=== PATIENT | female | born 1970 | race Caucasian/White ===

== ENCOUNTER → 2017-03-10 | Outpatient (CLI) | payer OTHER | LOC: LAB 09:23 | DX: Z00.00 Encounter for general adult medical examination without abnormal findings (principal); Z79.890 Hormone replacement therapy; N95.1 Menopausal and female climacteric states; R53.81 Other malaise; R53.82 Chronic fatigue, unspecified ==

== ENCOUNTER → 2018-03-22 | Outpatient (CLI) | payer BC | LOC: RAD 16:05 | DX: R05 Cough (principal); R06.02 Shortness of breath ==